=== PATIENT | male | born 1960 | race Caucasian/White ===

== ENCOUNTER 2019-04-27 12:29 | Emergency (ER) | payer OTHER ==
[2019-04-27 12:44] VITALS: BP 144/99
[2019-04-27 13:37] LABS: BILIRUBIN,URINE NEGATIVE (NEGATIVE); GLUCOSE, URINE (UA) NEGATIVE (NEGATIVE); KETONES,URINE (UA) NEGATIVE (NEGATIVE); LEUKOCYTE ESTERASE, URINE NEGATIVE (NEGATIVE); NITRITE,URINE NEGATIVE (NEGATIVE); OCCULT BLOOD,URINE NEGATIVE (NEGATIVE); PROTEIN,URINE NEGATIVE (NEGATIVE); UROBILINOGEN,URINE 0.2 (NORMAL) E.U./dL (NORMAL)
[2019-04-27 13:43] LABS: CLARITY,URINE CLEAR (CLEAR)
--- NOTE | 2019-04-27 14:04 | ED Physician Documentation ---
History of Present Illness - Stated complaint Stated Complaint: BACK PX - Chief complaint Chief Complaint: Back Pain - Additonal information Additional information: This is a 59-year-old male who presents with back pain radiating down his right leg. States that he did not have any specific trauma or inciting event but it started as an ache in his right lower back/upper sacrum and is radiating down towards his calf, occasionally have some cramping in his calf. He is tried taking Motrin and using some balm on it but this does not seem to help. Patient positions where he gets comfortable but in other positions the pain will shoot down his leg more. He has not had back pain is severe as this in the past. He denies any difficulty urinating, states he has been urinating a bit more frequently than normal, but has been making a point to drink more water. He is able to empty his bladder and denies any hesitency. He denies any incontinence, no bowel issues, no numbness in his his genital region or anywhere in his leg. He does not have weakness in his leg, but he states it does hurt when he flexes especially at his hips. No fever. Review of Systems Constitutional: denies: Fever Cardiac: denies: Chest pain / pressure Respiratory: denies: Dyspnea GI: denies: Abdominal Pain : denies: Dysuria Musculoskeletal: reports: Back pain Neurologic: denies: Focal weakness, Numbness PD PAST MEDICAL HISTORY - Past Medical History Cardiovascular: None Respiratory: None, Pneumonia Neuro: Other Endocrine/Autoimmune: None GI: None : Frequency HEENT: None, Other Psych: Depression Musculoskeletal: Other Derm: None - Past Surgical History Past Surgical History: Yes Ortho: Rotator cuff repair - Present Medications Home Medications: Ambulatory Orders Medication Instructions Recorded Confirmed Ibuprofen 800 mg PO Q8HR PRN 09/06/14 09/06/14 Methylprednisolone [Medrol] 4 mg PO DAILY #1 tab.ds.pk 04/27/19 Oxycodone HCl/Acetaminophen 1 - 2 each PO Q6H PRN #10 tablet 04/27/19 [Percocet 5-325 mg Tablet] - Allergies Allergies/Adverse Reactions: Allergies Allergy/AdvReac Type Severity Reaction Status Date / Time doxycycline Allergy Hallucinati Verified 04/27/19 12:45 ons - Social History Does the pt smoke?: No Smoking Status: Former smoker Does the pt drink ETOH?: No Substance Use and Type: Marijuana - Immunizations Immunizations are current?: Yes PD ED PE NORMAL - Vitals Vital signs reviewed: Yes - General General: Alert and oriented X 3 - HEENT HEENT: PERRL - Neck Neck: Supple, no meningeal sign - Cardiac Cardiac: RRR - Respiratory Respiratory: No respiratory distress, Clear bilaterally - Abdomen Abdomen: Soft, Non distended, Other (No suprapubic tenderness) - Back Back: Other (Atraumatic in appearance. No midline tenderness, no crepitus or skin changes. There is right upper gluteal/sacral tenderness to palpation. Pt is ambulatory with a slightly antalgic gait. Straight leg raise test postive.) - Derm Derm: Warm and dry - Extremities Extremities: No deformity, No tenderness to palpate, No edema, No calf tenderness / cord - Neuro Neuro: Alert and oriented X 3, case planner 2-12 intact, No motor deficit, No sensory deficit, Normal speech, Other (5/5 strength with ankle dorsiflexion and extension, SILT. ) - Psych Psych: Normal mood, Normal affect Results - Vitals Vitals: Oxygen O2 Source Room air - Labs Labs: Laboratory Tests 04/27/19 12:50 Urine Color YELLOW Urine Clarity CLEAR Urine pH 7.0 Ur Specific [place] <=1.005 Urine Protein NEGATIVE Urine Glucose (UA) NEGATIVE Urine Ketones NEGATIVE Urine Occult Blood NEGATIVE Urine Nitrite NEGATIVE Urine Bilirubin NEGATIVE Urine Urobilinogen 0.2 (NORMAL) Ur Leukocyte Esterase NEGATIVE Ur Microscopic Review NOT INDICATED Urine Culture Comments NOT INDICATED - Rads (name of study) Lumbar XR Radiology: Other (Mild disc height loss at L4-L5, otherwise unremarkable) PD MEDICAL DECISION MAKING - ED course Complexity details: considered differential (Strain, fracture, cauda equina, sciatica) ED course: Pt presents with pain radiating down his leg, consistent with sciatica. The leg itself is normal in appearance with no swelling, redness, or tenderness. He does not have fever, midline tenderness, difficulty going to the bathroom, history of cancer, weakness or numbness, but given his age >50 XR was obtained and shows no fracture, mild disc space narrowing at L4-5. On review of systems in triage he endorse urinating more frequently, but he states that he is urinating the expected amount for how much water he is drinking, he has no hesitancy, no saddle sensation changes, no incontinence, no signs of retention. UA normal. No signs of cauda equina today. His leg strength is excellent and his ability to ambulate is quite good. Valium did not help much, but oxycodone provided good relief. I prescribed percocet and a steroid dose-misty, and I reviewed PCP follow up and strict return precautions with any concerning or worsening symptoms. Pt agreed and was discharged home with a friend giving him a ride. Departure - Departure Disposition: Home, Self Care Clinical Impression: Sciatica Qualifiers: Laterality: right Qualified Code(s): M54.31 - Sciatica, right side Condition: Good Instructions: ED Sciatica Prescriptions: Methylprednisolone [Medrol] 4 mg PO DAILY #1 tab.ds.pk Oxycodone HCl/Acetaminophen [Percocet 5-325 mg Tablet] 1 - 2 each PO Q6H PRN #10 tablet PRN Reason: pain Comments: You were seen today for back pain. Your x-ray shows height loss in your L4-L5 region, you may have some disc disease causing sciatica down your right leg. We do not see signs of a fracture. I am prescribing you some pain medication as well as a steroid Dosepak that should hopefully help calm down the inflammation in your back. If you are having worsening symptoms such as worsening back pain despite the medications, weakness in your leg, difficulty using the bathroom such as inability to urinate, or not being able to control your bladder, fever, or other concerning symptoms, return to the emergency department immediately. Otherwise please follow-up with your primary care provider. You can take ibuprofen 600 mg every 6 hours as well. Discharge Date/Time: 04/27/19 16:52
[2019-04-27] MEDS ORDERED: diazePAM 5 MG TABLET PO STA (14:20)
--- NOTE | 2019-04-27 15:32 | XRAY Report ---
Reason: Lower back pain radiating down R leg Procedure Date: 04/27/2019 Accession Number: [id number] / [id number] Procedure: XR - Lumbar Spine 2 View CPT Code: Final Report FULL RESULT: EXAM: LUMBOSACRAL SPINE RADIOGRAPHY EXAM DATE: 04/27/2019 03:25 PM. CLINICAL HISTORY: Lower back pain radiating down R leg. COMPARISONS: None. TECHNIQUE: 2 views. FINDINGS: Alignment: Normal. No spondylolisthesis or scoliosis. Bones: Five [id number] lumbar vertebral bodies are present. No fractures or bone lesions. Disks: There is mild disk height loss at L4-L5. Other disk spaces are maintained. Facets: Satisfactory alignment. Sacroiliac Joints: Unremarkable. Soft Tissues: No dilated bowel loops or findings of mechanical bowel obstruction. IMPRESSION: 1. Mild L4-L5 disk height loss. Otherwise negative lumbar spine. RADIA
[2019-04-27] MEDS ORDERED: oxyCODONE 5 MG TABLET PO STA (15:36)
== END 2019-04-27 16:52 | disposition home or self-care (01) ==
LOC: ED 12:29
DX: M54.41 Lumbago with sciatica, right side (principal); Z87.891 Personal history of nicotine dependence
CPT/HCPCS: 51798; 72100; 81003; 99284; A9270; 81001; 87086

== ENCOUNTER 2022-07-30 12:21 | Outpatient (CLI) | payer OTHER ==
--- NOTE | 2022-07-30 13:51 | Ultrasound Report ---
PROCEDURE: Head or Neck Soft Tissue INDICATIONS: NECK MASS TECHNIQUE: Real-time scanning was performed of the neck, with image documentation. COMPARISON: None FINDINGS: Targeted ultrasound of the neck demonstrates a heterogeneous, hypoechoic and hyperechoic subcutaneous lesion measuring 0.9 x 0.5 x 1.1 cm. No skin tract identified. IMPRESSION: Heterogeneous, subcutaneous lesion measuring up to 1.1 cm. Findings probably represent a sebaceous cyst, but given reported growth, consider repeat ultrasound in 6 months to document stabi lity. Reviewed by: Oskar Nicole on 07/30/2022 1:49 PM PDT Approved by: Oskar Nicole on 07/30/2022 1:49 PM PDT Station ID: [id number]
== END 2022-07-30 12:22 | disposition home or self-care (01) ==
LOC: DI 12:21
PROVIDERS: ATTEND Internal Medicine
DX: R22.1 Localized swelling, mass and lump, neck (principal)

== ENCOUNTER 2023-04-09 05:47 | Day surgery (SDC) | payer OTHER ==
[2023-04-09] MEDS ORDERED: LACTATED RINGERS 1,000 ML IV ONE ×2 (06:03→07:45)
[2023-04-09] MEDS ORDERED: PROPOFOL 200 MG/20 ML VIAL IVP ONE (07:09)
--- NOTE | 2023-04-09 07:14 | ANESTHESIA ---
Pre-Anesthesia VS, & Labs - Diagnosis change in bowel habits - Procedure colonoscopy Height: 5 ft 6 in Weight (kg): 58.6 kg Body Mass Index: 20.8 BMI Classification: Normal - NPO >8 hours Home Medications and Allergies Home Medications: Ambulatory Orders Atorvastatin [Lipitor] 20 mg PO QPM 04/08/23 Finasteride [Proscar] 5 mg PO DAILY 04/08/23 Atorvastatin [Lipitor] 20 mg PO QPM 04/08/23 Finasteride [Proscar] 5 mg PO DAILY 04/08/23 Allergies/Adverse Reactions: Allergies Allergy/AdvReac Type Severity Reaction Status Date / Time doxycycline Allergy Hallucinati Verified 04/27/19 12:45 ons Anes History & Medical History - Anesthetic History Anesthesia Complications: reports: No previous complications - Medical History Cardiovascular: reports: None Pulmonary: reports: None Gastrointestinal: reports: None Urinary: reports: Frequency Neuro: reports: None Musculoskeletal: reports: None Endocrine/Autoimmune: reports: None Blood Disorders: reports: None Skin: reports: None Smoking Status: Former smoker (quit 10 years ago, uses smokeless tobacco) History of Cancer?: No - Surgical History General: reports: Colonoscopy Orthopedic: reports: Rotator cuff repair Exam General: Alert, Oriented x3, Cooperative, No acute distress Dental: Poor dentition Mouth Openin Fingerbreadth Neck Mobility: Normal Mallampati classification: II Thyromental Distance: 4-6 cm Mental/Cognitive Status: Alert/Oriented X3, Normal for patient Plan Anesthesia Type: General, Total IV Consent for Procedure(s) Verified and Reviewed: Yes Code Status: Attempt Resuscitation ASA classification: 2-Mild systemic disease Is this case an emergency?: No
[2023-04-09 08:00] VITALS: O2SAT 100
[2023-04-09 08:21] VITALS: BP 104/76
--- NOTE | 2023-04-09 11:20 | ANESTHESIA POST OP EVALUATION ---
Anesthesia Post Eval - Post Anesthesia Eval Vitals: Last Vital Signs Temp 36.9 C 04/09/23 07:45 Pulse 71 04/09/23 08:16 Resp 17 04/09/23 08:16 BP 104/76 04/09/23 08:16 Pulse Ox 100 04/09/23 08:16 O2 Flow Rate CV Function Including HR & BP: Stable Pain Control: Satisfactory Nausea & Vomiting: Negative Mental Status: Baseline Respiratory Status: Airway Patent Hydration Status: Satisfactory Anesthesia Complications: None
== END 2023-04-09 05:48 | disposition home or self-care (01) ==
LOC: SDS 05:47
PROVIDERS: ATTEND Surgery
PROC: 0DBN8ZZ Excision of Sigmoid Colon, Via Natural or Artificial Opening Endoscopic (ICD-10-PCS; principal; 2023-04-09 07:30)
DX: R19.4 Change in bowel habit (principal); K63.5 Polyp of colon; F17.220 Nicotine dependence, chewing tobacco, uncomplicated
CPT/HCPCS: 45380; J7120